=== PATIENT | male | born 1980 | race Caucasian/White ===

== ENCOUNTER 2019-01-23 13:24 | Emergency (ER) | payer OTHER, BC ==
[~2019-01-23] VITALS: Ht 180.3 cm; Wt 136.0 kg
[2019-01-23] MEDS ORDERED: predniSONE 20 MG TAB PO ONE (14:30)
[2019-01-23] MEDS ORDERED: FAMOTIDINE 20 MG TAB PO ONE (14:30)
[2019-01-23] MEDS ORDERED: HYDROCORTISONE 1% CREAM 30 GM TOP ONE (14:30)
[2019-01-23] MEDS ORDERED: diphenhydrAMINE INJ 50MG/ML VIAL (J1200) IM ONE (14:30)
[2019-01-23] MEDS ORDERED: PEPC1TAB5 PO (14:44)
[2019-01-23] MEDS ORDERED: EPIP0.3I2 IM (14:44)
[2019-01-23] MEDS ORDERED: HYDR1CRE30 TOP (14:44)
[2019-01-23] MEDS ORDERED: CLAR10CA3 PO (14:44)
[2019-01-23] MEDS ORDERED: PRED20TA PO (14:44)
[2019-01-23 15:09] VITALS: BP 139/85
== END 2019-01-23 15:24 | disposition home or self-care (01) ==
LOC: M ED 13:24
DX: T63.451A Toxic effect of venom of hornets, accidental (unintentional), initial encounter (principal); X58.XXXA Exposure to other specified factors, initial encounter; Y92.89 Other specified places as the place of occurrence of the external cause; R21 Rash and other nonspecific skin eruption
CPT/HCPCS: 96372; 99284; J1200

== ENCOUNTER → 2020-07-21 | Outpatient (REF) | payer BC ==
[~2020-07-21] MED LIST: CLAR10CA3 PO; EPIP0.3I2 IM; HYDR1CRE30 TOP; PEPC1TAB5 PO; PRED20TA PO
[2020-07-21 18:10] LABS: HEPATITIS B CORE ANTIBODY IGM NEGATIVE (NEGATIVE); HEPATITIS B SURFACE ANTIGEN NEGATIVE (NEGATIVE); HEPATITIS C VIRUS ABY INDEX < 0.0 INDEX (<0.8)
[2020-07-21 18:11] LABS: HEPATITIS A ANTIBODY IGM NEGATIVE (NEGATIVE)
== END ==
LOC: M LAB REF 16:44
PROVIDERS: ATTEND Registered Nurse
DX: R74.8 Abnormal levels of other serum enzymes (principal)

== ENCOUNTER → 2021-12-29 | Outpatient (CLI) | payer BC | LOC: M RAD 13:10 | PROVIDERS: ATTEND Registered Nurse | DX: R93.812 Abnormal radiologic findings on diagnostic imaging of left testicle (principal); N50.812 Left testicular pain; N50.89 Other specified disorders of the male genital organs ==

== ENCOUNTER → 2023-03-10 | Outpatient (CLI) | payer BC | LOC: M WUC 08:27 | PROVIDERS: ATTEND Physician Assistant Medical | DX: M54.50 Low back pain, unspecified (principal); M25.551 Pain in right hip ==

== ENCOUNTER → 2023-08-19 | Outpatient (REF) | payer BC | LOC: M LAB REF 17:34 | PROVIDERS: ATTEND Physician Assistant Medical | DX: K76.0 Fatty (change of) liver, not elsewhere classified (principal) ==

== ENCOUNTER → 2023-09-02 | Outpatient (CLI) | payer BC | LOC: M RAD 09:02 | PROVIDERS: ATTEND Physician Assistant Medical | DX: R74.8 Abnormal levels of other serum enzymes (principal); K76.0 Fatty (change of) liver, not elsewhere classified ==

== ENCOUNTER → 2023-09-30 | Outpatient (REF) | payer BC | LOC: M LAB REF 11:29 | PROVIDERS: ATTEND Physician Assistant Medical | DX: M54.50 Low back pain, unspecified (principal); Z11.59 Encounter for screening for other viral diseases ==

== ENCOUNTER → 2023-10-26 | Outpatient (CLI) | payer BC | LOC: M WHC 12:20 | PROVIDERS: ATTEND Physician Assistant Medical | DX: Z13.820 Encounter for screening for osteoporosis (principal) ==

== ENCOUNTER 2024-01-13 14:06 | Emergency (ER) | payer BC ==
[~2024-01-13] VITALS: Ht 180.3 cm; Wt 131.8 kg
[2024-01-13 14:07] VITALS: BP 160/90; TEMP 98.5; O2SAT 97
== END 2024-01-13 16:25 | disposition left against medical advice (07) ==
LOC: M ED 14:06
DX: Z53.21 Procedure and treatment not carried out due to patient leaving prior to being seen by health care provider (principal)

== ENCOUNTER → 2024-02-09 | Outpatient (REF) | payer BC | LOC: M LAB REF 16:43 | PROVIDERS: ATTEND Internal Medicine | DX: K76.0 Fatty (change of) liver, not elsewhere classified (principal); R74.8 Abnormal levels of other serum enzymes ==

== ENCOUNTER → 2024-03-26 | Outpatient (REF) | payer BC | LOC: M LAB REF 16:30 | PROVIDERS: ATTEND Physician Assistant Medical | DX: K76.0 Fatty (change of) liver, not elsewhere classified (principal) ==

== ENCOUNTER → 2024-04-13 | Outpatient (REF) | payer BC | LOC: M LAB REF 12:17 | PROVIDERS: ATTEND Internal Medicine | DX: K76.0 Fatty (change of) liver, not elsewhere classified (principal) ==

== ENCOUNTER → 2024-04-23 | Outpatient (REF) | payer BC ==
[2024-04-23 18:16] LABS: C REACTIVE PROTEIN QUANTITATIV < 0.40 MG/DL (<1.0)
[2024-04-23 18:17] LABS: PTH INTACT 57.4 PG/ML (18.5-88.0)
[2024-04-27 09:46] LABS: ALBUMIN SO 5.1 g/dL (3.8-4.8); ALPHA 1 GLOBULINS SO 0.3 g/dL (0.2-0.3); ALPHA 2 GLOBULINS SO 0.7 g/dL (0.5-0.9); BETA 2 GLOBULIN SO 0.5 g/dL (0.2-0.5); BETA GLOBULIN SO 0.4 g/dL (0.4-0.6); GAMMA GLOBULINS SO 1.1 g/dL (0.8-1.7)
== END ==
LOC: M LAB REF 16:09
PROVIDERS: ATTEND Internal Medicine
DX: K76.0 Fatty (change of) liver, not elsewhere classified (principal); R74.8 Abnormal levels of other serum enzymes

== ENCOUNTER → 2024-05-15 | Outpatient (REF) | payer BC | LOC: M LAB REF 12:09 | PROVIDERS: ATTEND Internal Medicine | DX: K76.0 Fatty (change of) liver, not elsewhere classified (principal); R74.8 Abnormal levels of other serum enzymes ==

== ENCOUNTER → 2024-06-19 | Outpatient (CLI) | payer BC | LOC: M RAD 07:51 | PROVIDERS: ATTEND Internal Medicine | DX: R74.8 Abnormal levels of other serum enzymes (principal); R93.7 Abnormal findings on diagnostic imaging of other parts of musculoskeletal system | CPT/HCPCS: 78306; A9503 ==

== ENCOUNTER → 2024-06-26 | Outpatient (CLI) | payer BC | LOC: M WUC 10:45 | PROVIDERS: ATTEND Internal Medicine | DX: R94.8 Abnormal results of function studies of other organs and systems (principal) ==

== ENCOUNTER → 2024-06-26 | Outpatient (CLI) | payer BC ==
[2024-06-26 16:18] LABS: PLATELET COUNT, AUTOMATED 259 10^3/uL (150-450)
[2024-06-26 16:40] LABS: INR 1.1; PARTIAL THROMBOPLASTIN TIME 29.7 SECONDS (24.8-34.2); PROTHROMBIN TIME 14.5 SECONDS (12.5-14.5)
== END ==
LOC: M WUC 13:45
PROVIDERS: ATTEND Student in an Organized Health Care Education/Training Program
DX: Z01.812 Encounter for preprocedural laboratory examination (principal)

== ENCOUNTER → 2024-07-09 | Outpatient (REF) | payer BC | LOC: M LAB REF 12:42 | PROVIDERS: ATTEND Internal Medicine | DX: K76.0 Fatty (change of) liver, not elsewhere classified (principal); R74.8 Abnormal levels of other serum enzymes ==

== ENCOUNTER → 2024-07-19 | Outpatient (REF) | payer BC ==
[2024-07-20 22:42] LABS: PROTEIN, TOTAL SO 7.7 g/dL (6.1-8.1)
== END ==
LOC: M LAB REF 13:23
PROVIDERS: ATTEND Internal Medicine
DX: R74.8 Abnormal levels of other serum enzymes (principal); K76.0 Fatty (change of) liver, not elsewhere classified

== ENCOUNTER → 2024-10-03 | Outpatient (CLI) | payer BC ==
[2024-10-03 09:48] LABS: IONIZED CALCIUM 4.6 MG/DL (4.5-5.3)
[2024-10-03 10:16] LABS: ALBUMIN 4.2 G/DL (3.2-5.2); ALKALINE PHOSPHATASE 575 U/L (40-129); ALT/SGPT 25 U/L (7.0-40); AST/SGOT 15 U/L (<34); BLOOD UREA NITROGEN 17 MG/DL (9-23); CALCIUM LEVEL 9.2 MG/DL (8.5-10.1); CARBON DIOXIDE LEVEL 25 MMOL/L (20-31); CHLORIDE LEVEL 109 MMOL/L (98-107); CREATININE FOR GFR 0.76 MG/DL (0.70-1.30); GLOMERULAR FILTRATION RATE > 60.0 (>60); GLUCOSE, FASTING 102 MG/DL (60-100); POTASSIUM SERUM 4.1 MMOL/L (3.5-5.1); SODIUM LEVEL 142 MMOL/L (136-145); TOTAL PROTEIN 7.4 G/DL (5.7-8.2)
[2024-10-03 10:18] LABS: TOTAL 25(OH) VITAMIN D 38.8 NG/ML (20.0-100.0)
== END ==
LOC: M LAB 09:02
PROVIDERS: ATTEND Physician Assistant
DX: M84.651 Pathological fracture in other disease, right femur (principal); M84.351S Stress fracture, right femur, sequela

== ENCOUNTER → 2024-10-25 | Outpatient (CLI) | payer BC ==
[~2024-10-25] MED LIST changes: +CHOL125C5 PO; +CLAR1TAB13 PO; +FLUTISP; +ISOVUE-370 76% 100ML VIAL ONE; +NAPR220C14 PO; +OLME5TAB24; +SEMA0.257; +TYLE650T38 PO
== END ==
LOC: M PLAIMG 07:43
PROVIDERS: ATTEND Specialist
DX: R93.7 Abnormal findings on diagnostic imaging of other parts of musculoskeletal system (principal); S22.32XK Fracture of one rib, left side, subsequent encounter for fracture with nonunion
CPT/HCPCS: 71260; Q9967

== ENCOUNTER → 2025-02-21 | Outpatient (CLI) | payer BC ==
[~2025-02-21] MED LIST changes: -ISOVUE-370 76% 100ML VIAL ONE
[2025-02-21 08:23] LABS: CALCIUM LEVEL 8.8 MG/DL (8.5-10.1); CARBON DIOXIDE LEVEL 24 MMOL/L (20-31); CHLORIDE LEVEL 107 MMOL/L (98-107); CREATININE FOR GFR 0.94 MG/DL (0.70-1.30); GLOMERULAR FILTRATION RATE > 90.0 (>60); MAGNESIUM LEVEL 1.9 MG/DL (1.8-2.4); PHOSPHORUS LEVEL 1.4 MG/DL (2.5-4.9); POTASSIUM SERUM 4.2 MMOL/L (3.5-5.1); PTH INTACT 48.1 PG/ML (18.5-88.0); SODIUM LEVEL 142 MMOL/L (136-145)
[2025-02-21 08:25] LABS: TESTOSTERONE 663 NG/DL (241-827); TOTAL 25(OH) VITAMIN D 47.1 NG/ML (20.0-100.0)
== END ==
LOC: M LAB 07:19
PROVIDERS: ATTEND Internal Medicine
DX: R74.8 Abnormal levels of other serum enzymes (principal)

== ENCOUNTER → 2025-02-22 | Outpatient (REF) | payer BC ==
[2025-02-22 14:22] LABS: CREATININE 24 HOUR, URINE 2333.8 MG/24HR (950-2500); CREATININE, URINE 166.7 MG/DL
[2025-02-22 14:24] LABS: CALCIUM, 24 HOUR URINE 170.8 MG/24HR (42-353)
== END ==
LOC: M LAB REF 13:09
PROVIDERS: ATTEND Internal Medicine
DX: R74.8 Abnormal levels of other serum enzymes (principal)

== ENCOUNTER → 2025-02-26 | Outpatient (REF) | payer BC | LOC: M LAB 02-25 10:27 | PROVIDERS: ATTEND Internal Medicine | DX: R74.8 Abnormal levels of other serum enzymes (principal) ==

== ENCOUNTER → 2025-03-14 | Outpatient (CLI) | payer BC ==
[2025-03-14 09:39] LABS: CALCIUM LEVEL 9.4 MG/DL (8.5-10.1); CARBON DIOXIDE LEVEL 24 MMOL/L (20-31); CHLORIDE LEVEL 107 MMOL/L (98-107); CREATININE FOR GFR 0.95 MG/DL (0.70-1.30); GLOMERULAR FILTRATION RATE > 90.0 (>60); PHOSPHORUS LEVEL 1.4 MG/DL (2.5-4.9); POTASSIUM SERUM 3.8 MMOL/L (3.5-5.1); PTH INTACT 46.5 PG/ML (18.5-88.0); SODIUM LEVEL 142 MMOL/L (136-145)
[2025-03-15 08:13] LABS: T P ELECTROPHORESIS SO 7.4 g/dL (6.1-8.1)
[2025-03-20 09:37] LABS: ALBUMIN SPEP 4.7 g/dL (3.8-4.8); ALPHA-1-GLOBULINS SO 0.3 g/dL (0.2-0.3); ALPHA-2-GLOBULINS SO 0.7 g/dL (0.5-0.9); BETA 2 GLOBULIN 0.4 g/dL (0.2-0.5); BETA-GLOBULIN SO 0.4 g/dL (0.4-0.6); GAMMA GLOBULINS SO 0.9 g/dL (0.8-1.7)
[2025-03-21 03:22] LABS: IMMUNOGLOBULIN A CELIAC 195 mg/dL (47-310); t-TRANSGLUTAMINASE(tTG) IgA < 1.0 U/mL (<15.0); t-TRANSGLUTAMINASE(tTG) IgG 4.1 U/mL (<15.0)
== END ==
LOC: M LAB 08:14
PROVIDERS: ATTEND Internal Medicine
DX: S22.31XD Fracture of one rib, right side, subsequent encounter for fracture with routine healing (principal)

== ENCOUNTER → 2025-04-04 | Outpatient (CLI) | payer BC ==
[2025-04-04 11:46] LABS: CALCIUM LEVEL 8.9 MG/DL (8.5-10.1); CARBON DIOXIDE LEVEL 23 MMOL/L (20-31); CHLORIDE LEVEL 108 MMOL/L (98-107); CREATININE FOR GFR 0.98 MG/DL (0.70-1.30); GLOMERULAR FILTRATION RATE > 90.0 (>60); PHOSPHORUS LEVEL 1.3 MG/DL (2.5-4.9); POTASSIUM SERUM 4.1 MMOL/L (3.5-5.1); SODIUM LEVEL 141 MMOL/L (136-145)
[2025-04-04 14:13] LABS: CREATININE, URINE 127.9 MG/DL; URINE PHOSPHOROUS 69.7 MG/DL
[2025-04-04 14:27] LABS: CREATININE 24 HOUR, URINE 2206.2 MG/24HR (950-2500); PHOSPHOROUS 24 HR URINE 1202.3 MG/24HR (400-1300)
== END ==
LOC: M LAB 09:45
PROVIDERS: ATTEND Internal Medicine
DX: R74.8 Abnormal levels of other serum enzymes (principal)

== ENCOUNTER → 2025-05-23 | Outpatient (CLI) | payer BC | LOC: M PLAIMG 07:30 | PROVIDERS: ATTEND Orthopaedic Surgery | DX: M25.552 Pain in left hip (principal); R93.6 Abnormal findings on diagnostic imaging of limbs ==

== ENCOUNTER → 2025-06-12 | Outpatient (REF) | payer BC | LOC: M LAB REF 12:39 | PROVIDERS: ATTEND Internal Medicine | DX: K75.81 Nonalcoholic steatohepatitis (NASH) (principal); R74.8 Abnormal levels of other serum enzymes ==